=== PATIENT | male | born 1965 ===

== ENCOUNTER 2021-07-24 14:19 | Emergency (ER) | payer SELFPAY ==
[~2021-07-24] VITALS: Ht 167.6 cm; Wt 80.3 kg
[2021-07-24 15:09] VITALS: BP 149/94
== END 2021-07-24 17:58 | disposition left against medical advice (07) ==
LOC: ER 14:19
DX: M54.9 Dorsalgia, unspecified (principal); R07.89 Other chest pain; Z53.21 Procedure and treatment not carried out due to patient leaving prior to being seen by health care provider
CPT/HCPCS: 93005